=== PATIENT | female | born 1955 | race African-American/Black ===

== ENCOUNTER 2018-03-17 18:13 | Inpatient (IN) | payer MEDICARE, MEDICAID ==
[~2018-03-17] VITALS: Ht 170.2 cm; Wt 112.9 kg
[2018-03-17 22:43] LABS: BASOPHILS % 0.7 % (0.0-2.0); EOSINOPHILS % 0.4 % (0.0-5.0); HEMATOCRIT. 35.2 % (36.0-48.0); HEMOGLOBIN. 11.8 g/dL (12.0-16.0); LYMPHOCYTES % 15.4 % (20.0-50.0); MEAN CORPUSCULAR HEMOGLOBIN 26.1 pg (28.0-32.0); MEAN CORPUSCULAR VOLUME 77.7 fL (81.0-99.0); MEAN PLATELET VOLUME 7.2 fl (7.4-10.4); NEUTROPHILS % 73.5 % (40.0-76.0); PLATELET 425 x1000/uL (130-400); RED BLOOD CELL COUNT 4.53 mill/uL (4.2-5.4); RED CELL DISTRIBUTION WIDTH 15.7 % (11.6-14.6)
[2018-03-17 22:48] LABS: CHLORIDE 98 mEq/L (98-107)
[2018-03-18 03:59] VITALS: BP 120/68
[2018-03-18 04:00] VITALS: BP 120/68
[2018-03-18 08:00] VITALS: BP 107/41
[2018-03-18] MEDS ORDERED: HYDROCODONE/ACETAMINOPHEN 5/325MG TABLET PO PRN (09:15)
[2018-03-18] MEDS: ENOXAPARIN 30MG/0.3ML SYR SUBCUT SCH ×2 (10:50→22:36)
[2018-03-18] MEDS: MORPHINE SULFATE 4 MG/ML CPJ (NOT FOR IM USE) IV PRN ×2 (10:51→15:17)
[2018-03-18 12:00] VITALS: BP 111/55
[2018-03-18 16:00] VITALS: BP 98/49
[2018-03-18] MEDS: SODIUM HYPOCHLORITE 0.125% 473ML SOLUTION TOP SCH (16:00)
[2018-03-18 20:00] VITALS: BP 104/48
[2018-03-18] MEDS: CLINDAMYCIN 600MG PREMIX 50 ML IV SCH (22:31)
[2018-03-19] VITALS: BP 105/52
[2018-03-19 04:00] VITALS: BP 103/56
[2018-03-19] MEDS: CLINDAMYCIN 600MG PREMIX 50 ML IV SCH ×2 (04:20→22:38)
[2018-03-19 08:00] VITALS: BP 104/62
[2018-03-19] MEDS: MORPHINE SULFATE 4 MG/ML CPJ (NOT FOR IM USE) IV PRN (08:29)
[2018-03-19] MEDS: ENOXAPARIN 30MG/0.3ML SYR SUBCUT SCH ×2 (10:14→22:38)
[2018-03-19 12:00] VITALS: BP 105/52
[2018-03-19] MEDS: SODIUM HYPOCHLORITE 0.125% 473ML SOLUTION TOP SCH (13:00)
[2018-03-19 16:00] VITALS: BP 101/57
[2018-03-19 20:00] VITALS: BP 108/55
[2018-03-19] MEDS: LEVOFLOXACIN 750MG PREMIX 150 ML IV SCH (20:43)
[2018-03-20] VITALS (7 sets, daily range): BP systolic 96–116; BP diastolic 48–66
[2018-03-20] MEDS: CLINDAMYCIN 600MG PREMIX 50 ML IV SCH ×3 (04:07→20:09)
[2018-03-20] MEDS: MORPHINE SULFATE 4 MG/ML CPJ (NOT FOR IM USE) IV PRN (04:17)
[2018-03-20 07:19] LABS: HEMATOCRIT 32.2 % (36.0-48.0); HEMOGLOBIN 10.5 g/dL (12.0-16.0); MEAN CORPUSCULAR HEMOGLOBIN 25.3 pg (28.0-32.0); MEAN CORPUSCULAR VOLUME 78.1 fL (81.0-99.0); PLATELET 355 x1000/uL (130-400); RED BLOOD CELL COUNT 4.13 mill/uL (4.2-5.4); RED CELL DISTRIBUTION WIDTH 15.9 % (11.6-14.6)
[2018-03-20 07:25] LABS: CHLORIDE 102 mEq/L (98-107)
[2018-03-20 07:26] LABS: BASOPHILS % 0.5 % (0.0-2.0); EOSINOPHILS % 2.9 % (0.0-5.0); HEMATOCRIT. 31.8 % (36.0-48.0); HEMOGLOBIN. 10.4 g/dL (12.0-16.0); LYMPHOCYTES % 21.6 % (20.0-50.0); MEAN CORPUSCULAR HEMOGLOBIN 25.6 pg (28.0-32.0); MEAN CORPUSCULAR VOLUME 77.8 fL (81.0-99.0); MEAN PLATELET VOLUME 6.9 fl (7.4-10.4); MONOCYTES % 8.6 % (2.0-8.0); NEUTROPHILS % 66.4 % (40.0-76.0); PLATELET 349 x1000/uL (130-400); RED BLOOD CELL COUNT 4.08 mill/uL (4.2-5.4); RED CELL DISTRIBUTION WIDTH 15.9 % (11.6-14.6)
[2018-03-20] MEDS: ENOXAPARIN 30MG/0.3ML SYR SUBCUT SCH ×2 (10:00→21:20)
[2018-03-20] MEDS: SODIUM HYPOCHLORITE 0.125% 473ML SOLUTION TOP SCH (10:01)
[2018-03-20] MEDS: LEVOFLOXACIN 750MG PREMIX 150 ML IV SCH (21:18)
[2018-03-21] VITALS: BP 101/58
[2018-03-21 04:00] VITALS: BP 113/75
[2018-03-21] MEDS: CLINDAMYCIN 600MG PREMIX 50 ML IV SCH ×2 (04:49→12:34)
[2018-03-21] MEDS: ENOXAPARIN 30MG/0.3ML SYR SUBCUT SCH (09:45)
[2018-03-21] MEDS: SODIUM HYPOCHLORITE 0.125% 473ML SOLUTION TOP SCH (09:46)
[2018-03-21 17:04] VITALS: BP 104/65
== END 2018-03-21 17:55 | DRG 602 ==
LOC: ER 19:37 → 6EST 22:35 → OBSVTOIN 22:35 → EDBEDREQTM 22:38 → EDBEDREQ 22:38 → ENRESERV 03-18 01:51
PROVIDERS: ADMIT Internal Medicine; ATTEND Internal Medicine
DX: L03.116 Cellulitis of left lower limb (principal); E43 Unspecified severe protein-calorie malnutrition; E87.1 Hypo-osmolality and hyponatremia; L97.929 Non-pressure chronic ulcer of unspecified part of left lower leg with unspecified severity; L97.919 Non-pressure chronic ulcer of unspecified part of right lower leg with unspecified severity; L03.115 Cellulitis of right lower limb; I87.2 Venous insufficiency (chronic) (peripheral); I87.8 Other specified disorders of veins; D64.9 Anemia, unspecified; R26.2 Difficulty in walking, not elsewhere classified; E66.01 Morbid (severe) obesity due to excess calories; Z83.3 Family history of diabetes mellitus; Z68.39 Body mass index [BMI] 39.0-39.9, adult; Z71.3 Dietary counseling and surveillance
CPT/HCPCS: 36415; 71045; 80048; 80053; 80061; 82962; 83036; 83880; 84443; 85025; 85027; 93306; 93970; 97163; 97166; 97530; 99285; J1650; J1956; J2270; J3490; J7050

== ENCOUNTER 2018-12-13 11:29 | Emergency (ER) | payer MEDICARE, MEDICAID ==
[~2018-12-13] VITALS: Ht 170.2 cm; Wt 118.4 kg
[2018-12-13 13:19] LABS: BASOPHILS % 1.1 % (0.0-2.0); EOSINOPHILS % 3.2 % (0.0-5.0); HEMATOCRIT. 38.9 % (36.0-48.0); HEMOGLOBIN. 12.8 g/dL (12.0-16.0); LYMPHOCYTES % 27.7 % (20.0-50.0); MEAN CORPUSCULAR HEMOGLOBIN 26.4 pg (28.0-32.0); MEAN PLATELET VOLUME 8.5 fl (7.4-10.4); MONOCYTES % 7.2 % (2.0-8.0); NEUTROPHILS % 60.8 % (40.0-76.0); PLATELET 203 x1000/uL (130-400); RED BLOOD CELL COUNT 4.86 mill/uL (4.2-5.4); RED CELL DISTRIBUTION WIDTH 15.7 % (11.6-14.6)
[2018-12-13 13:24] LABS: CHLORIDE 104 mEq/L (98-107)
[2018-12-13 14:55] VITALS: BP 144/74
== END 2018-12-13 17:43 | disposition home or self-care (01) ==
LOC: ER 11:29
DX: R60.0 Localized edema (principal)
CPT/HCPCS: 36415; 71045; 83605; 83880; 84484; 85379; 93005; 93970; 99284

== ENCOUNTER → 2019-03-21 | Outpatient (CLI) | payer MEDICARE, MEDICAID | END | disposition home or self-care (01) | LOC: RAD 12:22 | PROVIDERS: ATTEND Podiatrist Foot & Ankle Surgery | DX: I87.2 Venous insufficiency (chronic) (peripheral) (principal); L97.829 Non-pressure chronic ulcer of other part of left lower leg with unspecified severity; L97.819 Non-pressure chronic ulcer of other part of right lower leg with unspecified severity; I89.0 Lymphedema, not elsewhere classified | CPT/HCPCS: 93970 ==

== ENCOUNTER 2019-10-12 07:18 | Day surgery (SDC) | payer MEDICARE, MEDICAID ==
[~2019-10-12] VITALS: Ht 157.5 cm; Wt 111.1 kg
[2019-10-12 08:33] LABS: UCG SCREEN NEGATIVE
[2019-10-12] MEDS ORDERED: LACTATED RINGERS 1,000 ML IV SCH (10:00)
[2019-10-12] MEDS ORDERED: GABA-529 MT (11:25)
[2019-10-12] MEDS ORDERED: MAGN500C4 PO (11:25)
[2019-10-12] MEDS ORDERED: MULT-1146 MT (11:25)
[2019-10-12] MEDS ORDERED: PANT40SU PO (11:25)
[2019-10-12] MEDS ORDERED: NAPR-679 MT (11:25)
[2019-10-12] MEDS ORDERED: DOCU-150 PO (11:25)
[2019-10-12] MEDS ORDERED: TRAM50TA3 PO (11:25)
[2019-10-12] MEDS ORDERED: SUCCINYLCHOLINE CHLORIDE 200MG/10ML IV ONE ×2 (11:50→11:52)
[2019-10-12] MEDS ORDERED: GLYCOPYRROLATE 0.2 MG/ML 2ML VIAL ONE (11:50)
[2019-10-12] MEDS ORDERED: METOCLOPRAMIDE HCL 10MG/2ML VIAL ONE (11:50)
[2019-10-12] MEDS ORDERED: LIDOCAINE HCL/PF 1% 10 MG/ML 5ML VIAL ONE (11:50)
[2019-10-12] MEDS ORDERED: ONDANSETRON HCL 4MG/2ML INJ ONE (11:50)
[2019-10-12] MEDS ORDERED: MIDAZOLAM HCL 2 MG/2 ML VIAL ONE (11:50)
[2019-10-12] MEDS ORDERED: PROPOFOL 200MG/20ML VIAL IV ONE (11:50)
[2019-10-12] MEDS ORDERED: FENTANYL CITRATE/PF 50MCG/ML 2ML VIAL ONE (11:50)
[2019-10-12] MEDS ORDERED: SODIUM CHLORIDE 0.9% 1,000 ML IV ONE (12:32)
[2019-10-12] MEDS ORDERED: ONDANSETRON HCL 4MG/2ML INJ IV PRN (12:45)
[2019-10-12] MEDS ORDERED: MORPHINE SULFATE 2 MG/ML CPJ (NOT FOR IM USE) IV PRN (12:45)
[2019-10-12] MEDS ORDERED: MEPERIDINE HCL/PF 25MG/ML CPJ IV PRN (12:45)
[2019-10-12] MEDS ORDERED: HYDROMORPHONE HCL/PF 2MG/ML CPJ IV PRN (12:45)
[2019-10-12] MEDS ORDERED: LABETALOL HCL 5MG/ML VIAL 20ML IV ONE (12:48)
== END 2019-10-12 15:30 | disposition home or self-care (01) ==
LOC: OR 07:18
PROVIDERS: ATTEND Obstetrics & Gynecology Obstetrics
DX: N95.0 Postmenopausal bleeding (principal); M17.0 Bilateral primary osteoarthritis of knee; E66.01 Morbid (severe) obesity due to excess calories; K21.9 Gastro-esophageal reflux disease without esophagitis; Z79.899 Other long term (current) drug therapy; Z98.890 Other specified postprocedural states; Z83.3 Family history of diabetes mellitus
CPT/HCPCS: 58558; 81025; 88305; J0330; J2250; J2405; J2704; J2765; J3010; J3490

== ENCOUNTER → 2020-10-04 | Outpatient (CLI) | payer MEDICARE, MEDICAID ==
[~2020-10-04] MED LIST: ACET-2708 PO; DOCU-150 PO; GABA-529 MT; IMIQ1CRE10 TP; LOSA1TAB34 PO; MAGN500C4 PO; MULT-1146 MT; NAPR-679 MT; PANT40SU PO; PREG75CA PO; TRAM50TA3 PO
== END | disposition home or self-care (01) ==
LOC: LAB 09:47
PROVIDERS: ATTEND Obstetrics & Gynecology Gynecologic Oncology
DX: Z01.812 Encounter for preprocedural laboratory examination (principal); Z20.822 Contact with and (suspected) exposure to COVID-19
CPT/HCPCS: 87426

== ENCOUNTER 2020-10-05 05:15 | Inpatient (IN) | payer MEDICARE, MEDICAID ==
[~2020-10-05] VITALS: Ht 157.5 cm; Wt 122.0 kg
[2020-10-05] MEDS ORDERED: LACTATED RINGERS 1,000 ML IV SCH (06:00)
[2020-10-05 06:53] LABS: PARTIAL THROMBOPLASTIN TIME 25.6 sec (23.4-31.0); PROTHROMBIN TIME 11.2 sec (9.6-11.0)
[2020-10-05] MEDS ORDERED: SKIN ADHESIVE 0.7 GM EA TOP ONE (06:55)
[2020-10-05] MEDS ORDERED: BUPIVACAINE HCL/PF 0.25% (2.5MG/ML) 10ML ONE (06:56)
[2020-10-05] MEDS ORDERED: FENTANYL CITRATE/PF 50MCG/ML 2ML VIAL ONE ×2 (07:33→07:44)
[2020-10-05] MEDS ORDERED: ROCURONIUM BROMIDE 10MG/ML VIAL 5ML IV ONE ×2 (07:33→08:25)
[2020-10-05] MEDS ORDERED: PROPOFOL 200MG/20ML VIAL IV ONE (07:34)
[2020-10-05] MEDS ORDERED: SUCCINYLCHOLINE CHLORIDE 200MG/10ML IV ONE (07:34)
[2020-10-05] MEDS ORDERED: CEFAZOLIN SODIUM 1000MG/VIAL ONE (07:34)
[2020-10-05] MEDS ORDERED: NEOSTIGMINE METHYLSULFATE 1MG/ML 10 ML VIAL ONE (07:34)
[2020-10-05] MEDS ORDERED: GLYCOPYRROLATE 0.2 MG/ML 2ML VIAL ONE (07:34)
[2020-10-05] MEDS ORDERED: METOCLOPRAMIDE HCL 10MG/2ML VIAL ONE (07:34)
[2020-10-05] MEDS ORDERED: MIDAZOLAM HCL 2 MG/2 ML VIAL ONE (07:34)
[2020-10-05] MEDS ORDERED: ONDANSETRON HCL 4MG/2ML INJ ONE (07:34)
[2020-10-05] MEDS ORDERED: SODIUM CHLORIDE 0.9% 10ML VIAL ONE (07:34)
[2020-10-05] MEDS ORDERED: LABETALOL HCL 5MG/ML VIAL 20ML IV ONE (09:56)
[2020-10-05] MEDS ORDERED: MEPERIDINE HCL/PF 25MG/ML CPJ IV PRN ×2 (10:15)
[2020-10-05] MEDS ORDERED: SODIUM CHLORIDE 0.9% 1,000 ML IV ONE (10:15)
[2020-10-05] MEDS ORDERED: MORPHINE SULFATE 2 MG/ML CPJ (NOT FOR IM USE) IV PRN (10:15)
[2020-10-05] MEDS ORDERED: TRAMADOL 50MG TABLET PO PRN (10:45)
[2020-10-05] MEDS ORDERED: ONDANSETRON HCL 4MG/2ML INJ IV PRN ×2 (10:45→11:00)
[2020-10-05] MEDS: ONDANSETRON HCL 4MG/2ML INJ IV PRN ×2 (11:06→15:47)
[2020-10-05] MEDS: HYDROMORPHONE HCL/PF 2MG/ML CPJ IV PRN ×2 (11:11→11:20)
[2020-10-05 12:00] VITALS: BP 116/67
[2020-10-05 12:30] VITALS: BP 116/67
[2020-10-05] MEDS ORDERED: ACETAMINOPHEN 500MG TABLET PO SCH (14:00)
[2020-10-05] MEDS: ACETAMINOPHEN 500MG TABLET PO SCH ×2 (15:47→22:06)
[2020-10-05 16:00] VITALS: BP 138/76
[2020-10-05 20:00] VITALS: BP 113/71
[2020-10-05] MEDS: PREGABALIN 75MG CAPSULE PO SCH (22:05)
[2020-10-05] MEDS: SENNOSIDES/DOCUSATE SOD 8.6/50MG TABLET PO SCH (22:05)
[2020-10-06] VITALS: BP 120/51
[2020-10-06 04:00] VITALS: BP 114/49
[2020-10-06] MEDS: ACETAMINOPHEN 500MG TABLET PO SCH ×2 (06:19→15:48)
[2020-10-06 07:29] LABS: BASOPHILS % 0.4 % (0.0-2.0); EOSINOPHILS % 0.6 % (0.0-5.0); HEMATOCRIT. 32.6 % (36.0-48.0); HEMOGLOBIN. 10.7 g/dL (12.0-16.0); LYMPHOCYTES % 24.1 % (20.0-50.0); MEAN CORPUSCULAR HEMOGLOBIN 25.8 pg (28.0-32.0); MEAN CORPUSCULAR VOLUME 78.3 fL (81.0-99.0); MEAN PLATELET VOLUME 8.7 fl (7.4-10.4); MONOCYTES % 7.9 % (2.0-8.0); PLATELET 167 x1000/uL (130-400); RED BLOOD CELL COUNT 4.16 mill/uL (4.2-5.4); RED CELL DISTRIBUTION WIDTH 16.1 % (11.6-14.6)
[2020-10-06 07:33] LABS: CHLORIDE 105 mEq/L (98-107)
[2020-10-06 08:00] VITALS: BP 133/59
[2020-10-06] MEDS: HYDROCHLOROTHIAZIDE 25MG TABLET PO SCH (08:36)
[2020-10-06] MEDS: LOSARTAN POTASSIUM 50 MG TABLET PO SCH (08:36)
[2020-10-06] MEDS: FAMOTIDINE 20MG TABLET PO SCH ×2 (08:36→21:21)
[2020-10-06] MEDS: PREGABALIN 75MG CAPSULE PO SCH ×2 (08:36→21:21)
[2020-10-06 12:00] VITALS: BP 115/51
[2020-10-06 16:00] VITALS: BP 110/53
[2020-10-06] MEDS ORDERED: HYDROCODONE/ACETAMINOPHEN 5/325MG TABLET PO PRN (18:30)
[2020-10-06 20:00] VITALS: BP 105/55
[2020-10-06] MEDS: SENNOSIDES/DOCUSATE SOD 8.6/50MG TABLET PO SCH (21:22)
[2020-10-07] VITALS: BP 104/52
[2020-10-07 04:00] VITALS: BP 107/62
[2020-10-07 08:00] VITALS: BP 122/58
[2020-10-07] MEDS: LOSARTAN POTASSIUM 50 MG TABLET PO SCH (09:50)
[2020-10-07] MEDS: FAMOTIDINE 20MG TABLET PO SCH (09:50)
[2020-10-07] MEDS: HYDROCHLOROTHIAZIDE 25MG TABLET PO SCH (09:50)
[2020-10-07] MEDS: PREGABALIN 75MG CAPSULE PO SCH ×2 (09:50→20:08)
[2020-10-07] MEDS ORDERED: MAGNESIUM HYDROXIDE 400MG/5ML 30ML UDC PO PRN (10:45)
[2020-10-07 12:00] VITALS: BP_SYST 112; BP_DIAS 16; BP_DIAS 61
[2020-10-07 16:00] VITALS: BP 104/60
[2020-10-07] MEDS: MAGNESIUM/ALUMINUM HYDROXIDE/SIMETHICONE 30ML UDC PO PRN (17:35)
[2020-10-07 20:00] VITALS: BP 116/64
[2020-10-07] MEDS: SENNOSIDES/DOCUSATE SOD 8.6/50MG TABLET PO SCH (20:08)
[2020-10-07] MEDS: HYDROCODONE/ACETAMINOPHEN 5/325MG TABLET PO PRN (20:29)
[2020-10-08] VITALS: BP 107/56
[2020-10-08 04:00] VITALS: BP 104/56
[2020-10-08 08:00] VITALS: BP 113/60
[2020-10-08] MEDS: HYDROCHLOROTHIAZIDE 25MG TABLET PO SCH (09:30)
[2020-10-08] MEDS: PREGABALIN 75MG CAPSULE PO SCH ×2 (09:30→20:34)
[2020-10-08] MEDS: LOSARTAN POTASSIUM 50 MG TABLET PO SCH (09:30)
[2020-10-08] MEDS: FAMOTIDINE 20MG TABLET PO SCH (09:30)
[2020-10-08 12:00] VITALS: BP 108/57
[2020-10-08 16:00] VITALS: BP 105/62
[2020-10-08 20:00] VITALS: BP 117/72
[2020-10-08] MEDS: MAGNESIUM/ALUMINUM HYDROXIDE/SIMETHICONE 30ML UDC PO PRN (20:34)
[2020-10-08] MEDS: SENNOSIDES/DOCUSATE SOD 8.6/50MG TABLET PO SCH (20:34)
[2020-10-08] MEDS: HYDROCODONE/ACETAMINOPHEN 5/325MG TABLET PO PRN (20:35)
[2020-10-09] VITALS: BP 118/75
[2020-10-09 04:00] VITALS: BP 107/56
[2020-10-09] MEDS: HYDROCODONE/ACETAMINOPHEN 5/325MG TABLET PO PRN (06:27)
[2020-10-09 08:00] VITALS: BP 116/55
[2020-10-09] MEDS: FAMOTIDINE 20MG TABLET PO SCH (09:06)
[2020-10-09] MEDS: PREGABALIN 75MG CAPSULE PO SCH (09:06)
[2020-10-09] MEDS: HYDROCHLOROTHIAZIDE 25MG TABLET PO SCH (09:06)
[2020-10-09] MEDS: LOSARTAN POTASSIUM 50 MG TABLET PO SCH (09:06)
[2020-10-09] MEDS ORDERED: ASCORBIC ACID 500 MG TABLET PO SCH (11:30)
[2020-10-09] MEDS ORDERED: CYANOCOBALAMIN 1000MCG/ML VIAL IM SCH (11:30)
[2020-10-09 12:00] VITALS: BP 110/69
[2020-10-09] MEDS: FERROUS SULFATE 325MG TABLET PO SCH ×2 (12:39→17:28)
[2020-10-09] MEDS ORDERED: VITAMINS A AND D OINT 5GM UDPKT TOP NR (15:15)
[2020-10-09] MEDS ORDERED: VITAMINS A AND D OINT 5GM UDPKT TOP ONE (15:30)
[2020-10-09 16:00] VITALS: BP 121/65
[2020-10-09] MEDS ORDERED: VITAMINS A AND D OINT TUBE TOP NR (16:30)
[2020-10-09] MEDS ORDERED: DOCUSATE SODIUM 100MG CAPSULE PO SCH (17:00)
[2020-10-09] MEDS: MAGNESIUM/ALUMINUM HYDROXIDE/SIMETHICONE 30ML UDC PO PRN (17:32)
[2020-10-09 17:44] VITALS: BP 124/74
[2020-10-09] MEDS ORDERED: POLYETHYLENE GLYCOL 3350 (17GM) 1 DOSE PACK PO SCH (21:00)
[2020-10-13 14:11] LABS: 25-HYDROXY VITAMIN D3 13 ng/mL (.)
[2020-10-22] MEDS ORDERED: CYANOCOBALAMIN 1000MCG/ML VIAL IM SCH (09:00)
== END 2020-10-09 18:47 | DRG 740 ==
LOC: OR 05:15 → 6EST 05:16
PROVIDERS: ADMIT Obstetrics & Gynecology Gynecologic Oncology; ATTEND Obstetrics & Gynecology Gynecologic Oncology
PROC: 0UT94ZZ Resection of Uterus, Percutaneous Endoscopic Approach (ICD-10-PCS; principal; 2020-10-05)
PROC: 0UT24ZZ Resection of Bilateral Ovaries, Percutaneous Endoscopic Approach (ICD-10-PCS; 2020-10-05)
PROC: 0UT74ZZ Resection of Bilateral Fallopian Tubes, Percutaneous Endoscopic Approach (ICD-10-PCS; 2020-10-05)
PROC: 8E0W4CZ Robotic Assisted Procedure of Trunk Region, Percutaneous Endoscopic Approach (ICD-10-PCS; 2020-10-05)
DX: C54.1 Malignant neoplasm of endometrium (principal); Z68.42 Body mass index [BMI] 45.0-49.9, adult; G82.20 Paraplegia, unspecified; L97.909 Non-pressure chronic ulcer of unspecified part of unspecified lower leg with unspecified severity; D25.9 Leiomyoma of uterus, unspecified; I89.0 Lymphedema, not elsewhere classified; G62.9 Polyneuropathy, unspecified; E66.01 Morbid (severe) obesity due to excess calories; I10 Essential (primary) hypertension; E53.8 Deficiency of other specified B group vitamins; E61.1 Iron deficiency; Z20.822 Contact with and (suspected) exposure to COVID-19; K66.0 Peritoneal adhesions (postprocedural) (postinfection); D64.9 Anemia, unspecified; Z85.42 Personal history of malignant neoplasm of other parts of uterus
CPT/HCPCS: 36415; 80051; 80053; 82306; 82607; 82728; 82746; 83036; 83540; 83550; 84443; 85025; 86850; 86900; 87426; 88108; 88302; 97162; 97166; 97530; 97535; C1725; C1893; J0330; J0690; J1170; J2250; J2405; J2704; J2710; J2765; J3010; J3420; J3490

== ENCOUNTER 2020-10-09 18:50 | Inpatient (IN) | payer MEDICARE, MEDICAID ==
[~2020-10-09] VITALS: Ht 157.5 cm; Wt 122.0 kg
[~2020-10-09 18:50] MED LIST changes: -DOCU-150 PO; -GABA-529 MT
[2020-10-09 20:00] VITALS: BP 94/42
[2020-10-09] MEDS ORDERED: HYDROCODONE/ACETAMINOPHEN 5/325MG TABLET PO PRN ×2 (20:15→21:00)
[2020-10-09] MEDS ORDERED: MAGNESIUM HYDROXIDE 400MG/5ML 30ML UDC PO PRN (20:15)
[2020-10-09] MEDS ORDERED: ONDANSETRON HCL 4MG/2ML INJ IV PRN (20:15)
[2020-10-09] MEDS ORDERED: SENNOSIDES/DOCUSATE SOD 8.6/50MG TABLET PO PRN (20:15)
[2020-10-09] MEDS: POLYETHYLENE GLYCOL 3350 (17GM) 1 DOSE PACK PO SCH (22:52)
[2020-10-09] MEDS: PREGABALIN 75MG CAPSULE PO SCH (22:52)
[2020-10-10 08:16] LABS: BASOPHILS % 0.8 % (0.0-2.0); EOSINOPHILS % 1.3 % (0.0-5.0); HEMOGLOBIN. 11.8 g/dL (12.0-16.0); LYMPHOCYTES % 25.8 % (20.0-50.0); MEAN CORPUSCULAR HEMOGLOBIN 25.5 pg (28.0-32.0); MEAN CORPUSCULAR VOLUME 77.8 fL (81.0-99.0); MEAN PLATELET VOLUME 8.7 fl (7.4-10.4); MONOCYTES % 12.6 % (2.0-8.0); NEUTROPHILS % 59.5 % (40.0-76.0); PLATELET 203 x1000/uL (130-400); RED BLOOD CELL COUNT 4.62 mill/uL (4.2-5.4); RED CELL DISTRIBUTION WIDTH 16.3 % (11.6-14.6)
[2020-10-10 08:17] LABS: CHLORIDE 101 mEq/L (98-107)
[2020-10-10 08:25] VITALS: BP 100/58
[2020-10-10] MEDS: MAGNESIUM/ALUMINUM HYDROXIDE/SIMETHICONE 30ML UDC PO PRN (09:15)
[2020-10-10] MEDS: CYANOCOBALAMIN 1000MCG/ML VIAL IM SCH (09:15)
[2020-10-10] MEDS: DOCUSATE SODIUM 100MG CAPSULE PO SCH ×2 (09:17→16:28)
[2020-10-10] MEDS: HYDROCHLOROTHIAZIDE 25MG TABLET PO SCH (09:17)
[2020-10-10] MEDS: PREGABALIN 75MG CAPSULE PO SCH ×2 (09:17→21:20)
[2020-10-10] MEDS: HYDROCODONE/ACETAMINOPHEN 5/325MG TABLET PO PRN (09:17)
[2020-10-10] MEDS: FERROUS SULFATE 325MG TABLET PO SCH ×3 (09:18→16:28)
[2020-10-10] MEDS: FAMOTIDINE 20MG TABLET PO SCH (09:18)
[2020-10-10] MEDS: LOSARTAN POTASSIUM 50 MG TABLET PO SCH (09:18)
[2020-10-10] MEDS: ASCORBIC ACID 500 MG TABLET PO SCH (09:18)
[2020-10-10 20:00] VITALS: BP 97/41
[2020-10-10] MEDS: ENOXAPARIN 40MG/0.4ML SYR SUBCUT SCH (21:21)
[2020-10-10] MEDS: POLYETHYLENE GLYCOL 3350 (17GM) 1 DOSE PACK PO SCH (21:21)
[2020-10-11 08:00] VITALS: BP 119/62
[2020-10-11] MEDS: CYANOCOBALAMIN 1000MCG/ML VIAL IM SCH (09:40)
[2020-10-11] MEDS: PREGABALIN 75MG CAPSULE PO SCH ×2 (09:40→21:50)
[2020-10-11] MEDS: DOCUSATE SODIUM 100MG CAPSULE PO SCH ×2 (09:40→16:38)
[2020-10-11] MEDS: FERROUS SULFATE 325MG TABLET PO SCH ×3 (09:40→16:38)
[2020-10-11] MEDS: HYDROCHLOROTHIAZIDE 25MG TABLET PO SCH (09:40)
[2020-10-11] MEDS: LOSARTAN POTASSIUM 50 MG TABLET PO SCH (09:41)
[2020-10-11] MEDS: FAMOTIDINE 20MG TABLET PO SCH (09:41)
[2020-10-11] MEDS: ENOXAPARIN 40MG/0.4ML SYR SUBCUT SCH (09:42)
[2020-10-11] MEDS: ASCORBIC ACID 500 MG TABLET PO SCH (09:46)
[2020-10-11] MEDS: HYDROCODONE/ACETAMINOPHEN 5/325MG TABLET PO PRN (16:43)
[2020-10-11 20:00] VITALS: BP 95/40
[2020-10-11] MEDS: LACTULOSE 20G/30ML UDC PO SCH (21:51)
[2020-10-11] MEDS: POLYETHYLENE GLYCOL 3350 (17GM) 1 DOSE PACK PO SCH (21:51)
[2020-10-11] MEDS: ENOXAPARIN 30MG/0.3ML SYR SUBCUT SCH (21:51)
[2020-10-12] MEDS: LOSARTAN POTASSIUM 50 MG TABLET PO SCH (09:00)
[2020-10-12] MEDS: PREGABALIN 75MG CAPSULE PO SCH ×2 (09:08→20:34)
[2020-10-12] MEDS: FERROUS SULFATE 325MG TABLET PO SCH ×3 (09:08→16:50)
[2020-10-12] MEDS: FAMOTIDINE 20MG TABLET PO SCH (09:08)
[2020-10-12] MEDS: DOCUSATE SODIUM 100MG CAPSULE PO SCH ×2 (09:09→16:50)
[2020-10-12] MEDS: HYDROCHLOROTHIAZIDE 25MG TABLET PO SCH (09:09)
[2020-10-12] MEDS: ASCORBIC ACID 500 MG TABLET PO SCH (09:09)
[2020-10-12] MEDS: CYANOCOBALAMIN 1000MCG/ML VIAL IM SCH (09:10)
[2020-10-12] MEDS: ENOXAPARIN 30MG/0.3ML SYR SUBCUT SCH ×2 (09:10→20:34)
[2020-10-12 09:54] VITALS: BP 111/65
[2020-10-12] MEDS: MAGNESIUM/ALUMINUM HYDROXIDE/SIMETHICONE 30ML UDC PO PRN (11:54)
[2020-10-12 20:00] VITALS: BP 102/53
[2020-10-12] MEDS: LACTULOSE 20G/30ML UDC PO SCH ×2 (20:33→20:37)
[2020-10-12] MEDS: POLYETHYLENE GLYCOL 3350 (17GM) 1 DOSE PACK PO SCH (20:33)
[2020-10-13 08:00] VITALS: BP 110/55
[2020-10-13] MEDS: FAMOTIDINE 20MG TABLET PO SCH (08:34)
[2020-10-13] MEDS: ASCORBIC ACID 500 MG TABLET PO SCH (08:34)
[2020-10-13] MEDS: ENOXAPARIN 30MG/0.3ML SYR SUBCUT SCH ×2 (08:34→20:57)
[2020-10-13] MEDS: HYDROCODONE/ACETAMINOPHEN 5/325MG TABLET PO PRN (08:35)
[2020-10-13] MEDS: PREGABALIN 75MG CAPSULE PO SCH ×2 (08:37→20:57)
[2020-10-13] MEDS: FERROUS SULFATE 325MG TABLET PO SCH ×3 (08:37→16:31)
[2020-10-13] MEDS: CYANOCOBALAMIN 1000MCG/ML VIAL IM SCH (08:37)
[2020-10-13] MEDS: LOSARTAN POTASSIUM 50 MG TABLET PO SCH (08:37)
[2020-10-13] MEDS: HYDROCHLOROTHIAZIDE 25MG TABLET PO SCH (08:37)
[2020-10-13] MEDS: DOCUSATE SODIUM 100MG CAPSULE PO SCH ×2 (09:00→16:31)
[2020-10-13] MEDS: ACETAMINOPHEN 325MG TABLET PO PRN (12:58)
[2020-10-13] MEDS: MAGNESIUM/ALUMINUM HYDROXIDE/SIMETHICONE 30ML UDC PO PRN (13:36)
[2020-10-13 20:00] VITALS: BP 94/47
[2020-10-13] MEDS: LACTULOSE 20G/30ML UDC PO SCH (20:57)
[2020-10-13] MEDS: POLYETHYLENE GLYCOL 3350 (17GM) 1 DOSE PACK PO SCH (20:57)
[2020-10-14 08:00] VITALS: BP 101/55
[2020-10-14] MEDS: FERROUS SULFATE 325MG TABLET PO SCH ×3 (08:29→16:55)
[2020-10-14] MEDS: DOCUSATE SODIUM 100MG CAPSULE PO SCH ×2 (08:29→16:56)
[2020-10-14] MEDS: ENOXAPARIN 30MG/0.3ML SYR SUBCUT SCH ×2 (08:29→21:56)
[2020-10-14] MEDS: HYDROCHLOROTHIAZIDE 25MG TABLET PO SCH (08:30)
[2020-10-14] MEDS: LOSARTAN POTASSIUM 50 MG TABLET PO SCH ×2 (08:30→08:31)
[2020-10-14] MEDS: FAMOTIDINE 20MG TABLET PO SCH (08:30)
[2020-10-14] MEDS: CYANOCOBALAMIN 1000MCG/ML VIAL IM SCH (08:30)
[2020-10-14] MEDS: PREGABALIN 75MG CAPSULE PO SCH ×2 (08:30→21:56)
[2020-10-14] MEDS: ASCORBIC ACID 500 MG TABLET PO SCH (08:30)
[2020-10-14] MEDS ORDERED: LOPERAMIDE HCL 2MG CAPSULE PO PRN (12:45)
[2020-10-14 20:00] VITALS: BP 103/59
[2020-10-14] MEDS: POLYETHYLENE GLYCOL 3350 (17GM) 1 DOSE PACK PO SCH (21:00)
[2020-10-14] MEDS: LACTULOSE 20G/30ML UDC PO SCH (21:00)
[2020-10-15 08:10] VITALS: BP 110/49
[2020-10-15] MEDS: ENOXAPARIN 30MG/0.3ML SYR SUBCUT SCH ×2 (08:19→21:48)
[2020-10-15] MEDS: CYANOCOBALAMIN 1000MCG/ML VIAL IM SCH (08:19)
[2020-10-15] MEDS: FAMOTIDINE 20MG TABLET PO SCH (08:20)
[2020-10-15] MEDS: PREGABALIN 75MG CAPSULE PO SCH ×2 (08:20→21:47)
[2020-10-15] MEDS: ACETAMINOPHEN 325MG TABLET PO PRN (08:20)
[2020-10-15] MEDS: LOSARTAN POTASSIUM 50 MG TABLET PO SCH (08:20)
[2020-10-15] MEDS: HYDROCHLOROTHIAZIDE 25MG TABLET PO SCH (08:20)
[2020-10-15] MEDS: FERROUS SULFATE 325MG TABLET PO SCH ×3 (08:20→16:07)
[2020-10-15] MEDS: ASCORBIC ACID 500 MG TABLET PO SCH (08:20)
[2020-10-15] MEDS: DOCUSATE SODIUM 100MG CAPSULE PO SCH ×2 (08:27→16:09)
[2020-10-15 08:37] LABS: BASOPHILS % 0.7 % (0.0-2.0); EOSINOPHILS % 0.8 % (0.0-5.0); HEMATOCRIT. 39.3 % (36.0-48.0); HEMOGLOBIN. 12.8 g/dL (12.0-16.0); LYMPHOCYTES % 20.6 % (20.0-50.0); MEAN CORPUSCULAR HEMOGLOBIN 25.4 pg (28.0-32.0); MEAN CORPUSCULAR VOLUME 77.6 fL (81.0-99.0); MEAN PLATELET VOLUME 8.4 fl (7.4-10.4); MONOCYTES % 9.2 % (2.0-8.0); NEUTROPHILS % 68.7 % (40.0-76.0); PLATELET 249 x1000/uL (130-400); RED BLOOD CELL COUNT 5.06 mill/uL (4.2-5.4); RED CELL DISTRIBUTION WIDTH 16.3 % (11.6-14.6)
[2020-10-15 09:15] LABS: CHLORIDE 98 mEq/L (98-107)
[2020-10-15] MEDS ORDERED: ONDANSETRON HCL 4MG TABLET PO PRN (12:15)
[2020-10-15] MEDS ORDERED: OXYCODONE HCL 5MG TABLET PO PRN (12:30)
[2020-10-15 13:29] VITALS: BP 119/71
[2020-10-15 20:00] VITALS: BP 93/50
[2020-10-15] MEDS: POLYETHYLENE GLYCOL 3350 (17GM) 1 DOSE PACK PO SCH (21:00)
[2020-10-15] MEDS: LACTULOSE 20G/30ML UDC PO SCH (21:47)
[2020-10-15] MEDS: MAGNESIUM/ALUMINUM HYDROXIDE/SIMETHICONE 30ML UDC PO PRN (21:49)
[2020-10-16] MEDS: ACETAMINOPHEN 325MG TABLET PO PRN ×2 (07:04→12:48)
[2020-10-16 08:00] VITALS: BP 100/54
[2020-10-16] MEDS: ASCORBIC ACID 500 MG TABLET PO SCH (10:25)
[2020-10-16] MEDS: DOCUSATE SODIUM 100MG CAPSULE PO SCH ×2 (10:25→17:50)
[2020-10-16] MEDS: FERROUS SULFATE 325MG TABLET PO SCH ×3 (10:25→17:50)
[2020-10-16] MEDS: HYDROCHLOROTHIAZIDE 25MG TABLET PO SCH (10:25)
[2020-10-16] MEDS: FAMOTIDINE 20MG TABLET PO SCH (10:25)
[2020-10-16] MEDS: LOSARTAN POTASSIUM 50 MG TABLET PO SCH (10:25)
[2020-10-16] MEDS: PREGABALIN 75MG CAPSULE PO SCH ×2 (10:25→22:08)
[2020-10-16] MEDS: CYANOCOBALAMIN 1000MCG/ML VIAL IM SCH (10:26)
[2020-10-16] MEDS: ENOXAPARIN 30MG/0.3ML SYR SUBCUT SCH ×2 (10:26→22:08)
[2020-10-16 20:00] VITALS: BP 78/36
[2020-10-16] MEDS: LACTULOSE 20G/30ML UDC PO SCH (21:00)
[2020-10-16] MEDS: POLYETHYLENE GLYCOL 3350 (17GM) 1 DOSE PACK PO SCH (21:00)
[2020-10-17 08:00] VITALS: BP 96/49
[2020-10-17] MEDS: ASCORBIC ACID 500 MG TABLET PO SCH (08:44)
[2020-10-17] MEDS: FERROUS SULFATE 325MG TABLET PO SCH ×3 (08:50→17:57)
[2020-10-17] MEDS: FAMOTIDINE 20MG TABLET PO SCH (08:50)
[2020-10-17] MEDS: DOCUSATE SODIUM 100MG CAPSULE PO SCH ×2 (08:51→17:57)
[2020-10-17] MEDS: LOSARTAN POTASSIUM 50 MG TABLET PO SCH (08:52)
[2020-10-17] MEDS: HYDROCHLOROTHIAZIDE 25MG TABLET PO SCH (08:52)
[2020-10-17] MEDS: ACETAMINOPHEN 325MG TABLET PO PRN ×3 (09:01→20:41)
[2020-10-17] MEDS: PREGABALIN 75MG CAPSULE PO SCH ×2 (09:01→20:55)
[2020-10-17] MEDS: ENOXAPARIN 30MG/0.3ML SYR SUBCUT SCH ×2 (09:01→20:55)
[2020-10-17 20:00] VITALS: BP 98/52
[2020-10-17] MEDS: POLYETHYLENE GLYCOL 3350 (17GM) 1 DOSE PACK PO SCH (20:54)
[2020-10-17] MEDS: MAGNESIUM/ALUMINUM HYDROXIDE/SIMETHICONE 30ML UDC PO PRN (20:55)
[2020-10-17] MEDS: LACTULOSE 20G/30ML UDC PO SCH (20:55)
[2020-10-17 21:43] LABS: CLARITY URINE CLEAR (CLEAR); COLOR URINE YELLOW (YELLOW); KETONES URINE NEGATIVE (NEGATIVE); LEUKOCYTE ESTERASE URINE 1+ (NEGATIVE); NITRITE URINE NEGATIVE (NEGATIVE); OCCULT BLOOD URINE 2+ (NEGATIVE); PH URINE 5.5 (4.5-8.0); PROTEIN URINE 1+ (NEGATIVE); SPECIFIC GRAVITY URINE 1.017 (1.005-1.030); UROBILINOGEN URINE 0.2 E.U./dL (0.2-1.0)
[2020-10-18 01:00] VITALS: BP 96/57
[2020-10-18 07:52] LABS: BASOPHILS % 0.5 % (0.0-2.0); EOSINOPHILS % 1.3 % (0.0-5.0); HEMATOCRIT. 35.8 % (36.0-48.0); HEMOGLOBIN. 11.7 g/dL (12.0-16.0); MEAN CORPUSCULAR HEMOGLOBIN 25.4 pg (28.0-32.0); MEAN PLATELET VOLUME 8.6 fl (7.4-10.4); MONOCYTES % 9.8 % (2.0-8.0); NEUTROPHILS % 69.4 % (40.0-76.0); PLATELET 232 x1000/uL (130-400); RED BLOOD CELL COUNT 4.59 mill/uL (4.2-5.4)
[2020-10-18 08:16] LABS: CHLORIDE 99 mEq/L (98-107)
[2020-10-18 08:18] VITALS: BP 119/50
[2020-10-18] MEDS: DOCUSATE SODIUM 100MG CAPSULE PO SCH ×2 (09:00→17:03)
[2020-10-18] MEDS: FAMOTIDINE 20MG TABLET PO SCH (09:01)
[2020-10-18] MEDS: ASCORBIC ACID 500 MG TABLET PO SCH (09:01)
[2020-10-18] MEDS: FERROUS SULFATE 325MG TABLET PO SCH ×3 (09:02→17:03)
[2020-10-18] MEDS: LOSARTAN POTASSIUM 50 MG TABLET PO SCH (09:02)
[2020-10-18] MEDS: HYDROCHLOROTHIAZIDE 25MG TABLET PO SCH (09:10)
[2020-10-18] MEDS: PREGABALIN 75MG CAPSULE PO SCH ×2 (09:19→20:06)
[2020-10-18] MEDS: ENOXAPARIN 30MG/0.3ML SYR SUBCUT SCH ×2 (09:20→20:07)
[2020-10-18] MEDS: ACETAMINOPHEN 325MG TABLET PO PRN (09:20)
[2020-10-18 20:00] VITALS: BP 91/38
[2020-10-18] MEDS: LACTULOSE 20G/30ML UDC PO SCH (20:07)
[2020-10-18] MEDS: POLYETHYLENE GLYCOL 3350 (17GM) 1 DOSE PACK PO SCH (20:07)
[2020-10-19 08:00] VITALS: BP 93/52
[2020-10-19] MEDS: DOCUSATE SODIUM 100MG CAPSULE PO SCH (08:46)
[2020-10-19] MEDS: PREGABALIN 75MG CAPSULE PO SCH (08:46)
[2020-10-19] MEDS: FAMOTIDINE 20MG TABLET PO SCH (08:46)
[2020-10-19] MEDS: FERROUS SULFATE 325MG TABLET PO SCH ×2 (08:46→12:40)
[2020-10-19] MEDS: HYDROCHLOROTHIAZIDE 25MG TABLET PO SCH (08:46)
[2020-10-19] MEDS: ASCORBIC ACID 500 MG TABLET PO SCH (08:46)
[2020-10-19] MEDS: LOSARTAN POTASSIUM 50 MG TABLET PO SCH (08:49)
[2020-10-19] MEDS: ACETAMINOPHEN 325MG TABLET PO PRN (08:57)
[2020-10-19] MEDS: ENOXAPARIN 30MG/0.3ML SYR SUBCUT SCH (09:00)
[2020-10-19 11:10] VITALS: BP 93/52
[2020-10-19] MEDS ORDERED: ASCO-339 PO (14:01)
[2020-10-19] MEDS ORDERED: DOCU-138 PO (14:01)
[2020-10-19] MEDS ORDERED: ASCO-339 MT (14:01)
[2020-10-19] MEDS ORDERED: FERR325T6 MT (14:01)
[2020-10-20 17:06] LABS: 25-HYDROXY VITAMIN D3 14 ng/mL (.)
[2020-10-23] MEDS ORDERED: CYANOCOBALAMIN 1000MCG/ML VIAL IM SCH (09:00)
== END 2020-10-19 15:30 | disposition home health service (06) | DRG 73 ==
PROVIDERS: ADMIT Physical Medicine & Rehabilitation Spinal Cord Injury Medicine; ATTEND Hospitalist
DX: G62.9 Polyneuropathy, unspecified (principal); E43 Unspecified severe protein-calorie malnutrition; G82.20 Paraplegia, unspecified; L97.929 Non-pressure chronic ulcer of unspecified part of left lower leg with unspecified severity; N39.0 Urinary tract infection, site not specified; L97.919 Non-pressure chronic ulcer of unspecified part of right lower leg with unspecified severity; Z68.42 Body mass index [BMI] 45.0-49.9, adult; C54.1 Malignant neoplasm of endometrium; D25.9 Leiomyoma of uterus, unspecified; B07.9 Viral wart, unspecified; E66.01 Morbid (severe) obesity due to excess calories; D63.8 Anemia in other chronic diseases classified elsewhere; E53.8 Deficiency of other specified B group vitamins; I10 Essential (primary) hypertension; I87.2 Venous insufficiency (chronic) (peripheral); I89.0 Lymphedema, not elsewhere classified; D50.9 Iron deficiency anemia, unspecified; R53.81 Other malaise; R26.9 Unspecified abnormalities of gait and mobility; Z90.710 Acquired absence of both cervix and uterus; R20.0 Anesthesia of skin; Z79.899 Other long term (current) drug therapy
CPT/HCPCS: 36415; 71045; 80048; 80053; 81003; 82306; 83880; 84134; 85025; 92610; 93970; 97110; 97116; 97162; 97166; 97530; 97535; J1650; J2405; J3420; Q0162

== ENCOUNTER 2021-03-24 13:10 | Emergency (ER) | payer MEDICARE, MEDICAID ==
[~2021-03-24 13:10] MED LIST changes: -ACET-2708 PO; +ASCO-339 MT; +DOCU-138 PO; +FERR325T6 MT; -IMIQ1CRE10 TP; -LOSA1TAB34 PO; -MAGN500C4 PO; -MULT-1146 MT; -PANT40SU PO
== END 2021-03-24 14:33 | disposition left against medical advice (07) ==
LOC: ER 13:10
DX: R10.9 Unspecified abdominal pain (principal); Z53.21 Procedure and treatment not carried out due to patient leaving prior to being seen by health care provider

== ENCOUNTER 2021-03-24 14:50 | Emergency (ER) | payer MEDICARE, MEDICAID ==
[~2021-03-24] VITALS: Ht 165.1 cm; Wt 5.0 kg
[2021-03-24 14:55] VITALS: BP 146/65
== END 2021-03-24 17:32 | disposition home or self-care (01) ==
LOC: ER 14:50
DX: K42.9 Umbilical hernia without obstruction or gangrene (principal); I10 Essential (primary) hypertension; Z90.710 Acquired absence of both cervix and uterus; Z79.899 Other long term (current) drug therapy
CPT/HCPCS: 99281

== ENCOUNTER → 2021-06-26 | Day surgery (SDC) | payer MEDICARE, MEDICAID ==
[2021-06-26] VITALS (12 sets, daily range): BP systolic 99–131; BP diastolic 41–83
[~2021-06-26] VITALS: Ht 157.5 cm; Wt 105.2 kg
[~2021-06-26] MED LIST changes: +ARTHRITIS PAIN; +BUME0.5T5 PO; +DOCU-150 MT; +FENTANYL CITRATE/PF 50MCG/ML 2ML VIAL IV ONE; +FENTANYL CITRATE/PF 50MCG/ML 2ML VIAL ONE; +FEROSUL; +GABA-529 MT; +HYDROCODONE/ACETAMINOPHEN 5/325MG TABLET PO PRN; +IMIQ1CRE TP; +LIDOCAINE HCL 1% 20ML VIAL (Pyxis) INJ ONE; +LOSA1TAB34 MT; +METO-396 MT; +MULT-13 MT; +NALOXONE HCL 0.4MG/ML VIAL IV PRN; +NAPR-681 MT; +OMEP20CA14 PO; +PAIN RELIEF PO; +SODIUM BICARBONATE 4% (2.4MEQ) 5ML VIAL IV ONE; +TRAM50TA3 MT
== END | disposition home or self-care (01) ==
LOC: RAD 07:56
PROVIDERS: ATTEND Obstetrics & Gynecology Gynecologic Oncology
DX: C78.6 Secondary malignant neoplasm of retroperitoneum and peritoneum (principal); C54.1 Malignant neoplasm of endometrium; K92.1 Melena; D25.1 Intramural leiomyoma of uterus; R19.09 Other intra-abdominal and pelvic swelling, mass and lump; Z79.899 Other long term (current) drug therapy; Z98.890 Other specified postprocedural states; Z83.3 Family history of diabetes mellitus; Z20.822 Contact with and (suspected) exposure to COVID-19
CPT/HCPCS: 49180; 77012; 87426; 88305; 88331; 99152; 99153; J3010; J3490; G0500

== ENCOUNTER 2021-07-02 17:45 | Inpatient (IN) | payer MEDICARE, MEDICAID ==
[~2021-07-02] VITALS: Ht 157.5 cm; Wt 108.0 kg
[~2021-07-02 17:45] MED LIST changes: -ARTHRITIS PAIN; -BUME0.5T5 PO; -DOCU-150 MT; -FENTANYL CITRATE/PF 50MCG/ML 2ML VIAL IV ONE; -FENTANYL CITRATE/PF 50MCG/ML 2ML VIAL ONE; -FEROSUL; -GABA-529 MT; -HYDROCODONE/ACETAMINOPHEN 5/325MG TABLET PO PRN; -IMIQ1CRE TP; -LIDOCAINE HCL 1% 20ML VIAL (Pyxis) INJ ONE; -LOSA1TAB34 MT; -METO-396 MT; -MULT-13 MT; -NALOXONE HCL 0.4MG/ML VIAL IV PRN; -NAPR-681 MT; -OMEP20CA14 PO; -PAIN RELIEF PO; -SODIUM BICARBONATE 4% (2.4MEQ) 5ML VIAL IV ONE; -TRAM50TA3 MT
[2021-07-02] MEDS ORDERED: MORPHINE SULFATE 4 MG/ML CPJ (NOT FOR IM USE) IV STA (17:59)
[2021-07-02] MEDS ORDERED: ONDANSETRON HCL 4MG/2ML INJ IV STA (17:59)
[2021-07-02] MEDS ORDERED: PIPERACILLIN/TAZ 3.375G PREMIX 50 ML IV ONE (18:15)
[2021-07-02] MEDS ORDERED: VANCOMYCIN 1 G PREMIX 200 ML IV ONE (18:15)
[2021-07-02 18:57] LABS: BASOPHILS % 0.9 % (0.0-2.0); EOSINOPHILS % 3.3 % (0.0-5.0); HEMATOCRIT. 32.1 % (36.0-48.0); HEMOGLOBIN. 10.4 g/dL (12.0-16.0); LYMPHOCYTES % 18.3 % (20.0-50.0); MEAN CORPUSCULAR HEMOGLOBIN 26.9 pg (28.0-32.0); MEAN CORPUSCULAR VOLUME 83.1 fL (81.0-99.0); MONOCYTES % 7.2 % (2.0-8.0); NEUTROPHILS % 70.3 % (40.0-76.0); PLATELET 339 x1000/uL (130-400); RED BLOOD CELL COUNT 3.87 mill/uL (4.2-5.4); RED CELL DISTRIBUTION WIDTH 14.8 % (11.6-14.6)
[2021-07-02 19:01] LABS: CHLORIDE 109 mEq/L (98-107)
[2021-07-03] MEDS ORDERED: MORPHINE SULFATE 4 MG/ML CPJ (NOT FOR IM USE) IV SCH (01:30)
[2021-07-03] MEDS ORDERED: PIPERACILLIN/TAZ 3.375G PREMIX 50 ML IV SCH (01:30)
[2021-07-03] MEDS ORDERED: VANCOMYCIN 1 G PREMIX 200 ML IV SCH (01:30)
[2021-07-03] MEDS ORDERED: ONDANSETRON HCL 4MG/2ML INJ IV SCH (01:30)
[2021-07-03 08:00] VITALS: BP 104/49
[2021-07-03 10:10] VITALS: BP 104/49
[2021-07-03] MEDS ORDERED: METO-396 MT (10:35)
[2021-07-03] MEDS ORDERED: TRAM50TA3 MT ×2 (10:35)
[2021-07-03] MEDS ORDERED: DOCU-150 MT (10:35)
[2021-07-03] MEDS ORDERED: PAIN RELIEF PO (10:35)
[2021-07-03] MEDS ORDERED: ARTHRITIS PAIN (10:35)
[2021-07-03] MEDS ORDERED: FEROSUL (10:35)
[2021-07-03] MEDS ORDERED: OMEP20CA14 PO (10:35)
[2021-07-03] MEDS ORDERED: ASCO-339 MT (10:35)
[2021-07-03] MEDS ORDERED: GABA-529 MT (10:35)
[2021-07-03] MEDS ORDERED: IMIQ1CRE TP (10:35)
[2021-07-03] MEDS ORDERED: LOSA1TAB34 MT (10:35)
[2021-07-03] MEDS ORDERED: MULT-13 MT (10:35)
[2021-07-03] MEDS ORDERED: BUME0.5T5 PO (10:35)
[2021-07-03] MEDS ORDERED: NAPR-681 MT (10:35)
[2021-07-03] MEDS ORDERED: CLONIDINE 0.1MG TABLET PO PRN (11:00)
[2021-07-03] MEDS ORDERED: DIPHENHYDRAMINE 50MG/ML VIAL IV PRN (11:00)
[2021-07-03] MEDS ORDERED: *PATIENT'S OWN MEDICATION STORAGE XX SCH (11:00)
[2021-07-03] MEDS ORDERED: IPRATROPIUM/ALBUTEROL 0.5-3(2.5)MG/3ML NEB HHN PRN (11:00)
[2021-07-03] MEDS ORDERED: NALOXONE HCL 0.4MG/ML VIAL IV PRN (11:15)
[2021-07-03 12:00] VITALS: BP 117/48
[2021-07-03] MEDS ORDERED: VANCOMYCIN 1 G PREMIX 200 ML IV NR (12:00)
[2021-07-03] MEDS ORDERED: PIPERACILLIN/TAZOBACTAM 3.375 G in DEXTROSE 5% WATER 50 ML IV SCH (12:00)
[2021-07-03] MEDS: MORPHINE SULFATE 2 MG/ML CPJ (NOT FOR IM USE) IV PRN ×2 (15:58→22:15)
[2021-07-03 16:00] VITALS: BP 114/57
[2021-07-03 20:00] VITALS: BP 107/71
[2021-07-03] MEDS: PIPERACILLIN/TAZOBACTAM 3.375 G in DEXTROSE 5% WATER 50 ML IV SCH (22:14)
[2021-07-04] VITALS: BP 116/56
[2021-07-04 04:00] VITALS: BP 122/53
[2021-07-04] MEDS: PIPERACILLIN/TAZOBACTAM 3.375 G in DEXTROSE 5% WATER 50 ML IV SCH ×3 (06:47→22:05)
[2021-07-04 07:07] LABS: EOSINOPHILS % 4.7 % (0.0-5.0); HEMATOCRIT. 27.4 % (36.0-48.0); HEMOGLOBIN. 9.2 g/dL (12.0-16.0); LYMPHOCYTES % 23.1 % (20.0-50.0); MEAN CORPUSCULAR HEMOGLOBIN 27.6 pg (28.0-32.0); MEAN PLATELET VOLUME 8.1 fl (7.4-10.4); MONOCYTES % 10.2 % (2.0-8.0); PLATELET 281 x1000/uL (130-400); RED BLOOD CELL COUNT 3.34 mill/uL (4.2-5.4); RED CELL DISTRIBUTION WIDTH 14.9 % (11.6-14.6)
[2021-07-04 07:11] LABS: CHLORIDE 108 mEq/L (98-107)
[2021-07-04 07:22] LABS: LDL CHOLESTEROL 65 mg/dL (5-100)
[2021-07-04 07:27] LABS: HDL CHOLESTEROL 47 mg/dL (40-59)
[2021-07-04 08:00] VITALS: BP 109/58
[2021-07-04] MEDS: ACETAMINOPHEN 325MG TABLET PO PRN ×2 (09:23→22:16)
[2021-07-04 12:00] VITALS: BP 100/93
[2021-07-04] MEDS ORDERED: VANCOMYCIN 750 MG PREMIX 150 ML IV SCH (12:00)
[2021-07-04] MEDS: MORPHINE SULFATE 2 MG/ML CPJ (NOT FOR IM USE) IV PRN ×2 (13:11→17:56)
[2021-07-04 16:00] VITALS: BP 120/68
[2021-07-04] MEDS: VANCOMYCIN 1 G PREMIX 200 ML IV SCH (17:55)
[2021-07-04 20:00] VITALS: BP 108/57
[2021-07-05] VITALS: BP 115/53
[2021-07-05] MEDS ORDERED: VANCOMYCIN 1250MG in DEXTROSE 5% WATER 250ML IV SCH
[2021-07-05 04:00] VITALS: BP 105/64
[2021-07-05] MEDS: PIPERACILLIN/TAZOBACTAM 3.375 G in DEXTROSE 5% WATER 50 ML IV SCH ×3 (05:51→22:21)
[2021-07-05 06:17] LABS: CHLORIDE 108 mEq/L (98-107)
[2021-07-05 08:00] VITALS: BP 116/50
[2021-07-05] MEDS: MORPHINE SULFATE 2 MG/ML CPJ (NOT FOR IM USE) IV PRN ×2 (09:32→16:12)
[2021-07-05] MEDS: ONDANSETRON HCL 4MG/2ML INJ IV PRN ×2 (09:33→16:11)
[2021-07-05 11:59] VITALS: BP 107/65
[2021-07-05 15:50] VITALS: BP 133/51
[2021-07-05 20:00] VITALS: BP 120/60
[2021-07-05] MEDS: METOPROLOL TARTRATE 25MG TABLET PO SCH (21:02)
[2021-07-05] MEDS: VANCOMYCIN 1 G PREMIX 200 ML IV SCH (21:06)
[2021-07-05] MEDS: ACETAMINOPHEN 325MG TABLET PO PRN (23:11)
[2021-07-06] VITALS (7 sets, daily range): BP systolic 104–112; BP diastolic 53–63
[2021-07-06] MEDS: ACETAMINOPHEN 325MG TABLET PO PRN (04:20)
[2021-07-06] MEDS: PIPERACILLIN/TAZOBACTAM 3.375 G in DEXTROSE 5% WATER 50 ML IV SCH ×3 (05:26→21:35)
[2021-07-06 08:12] LABS: BASOPHILS % 0.8 % (0.0-2.0); EOSINOPHILS % 4.9 % (0.0-5.0); LYMPHOCYTES % 21.9 % (20.0-50.0); MEAN CORPUSCULAR HEMOGLOBIN 27.6 pg (28.0-32.0); MEAN CORPUSCULAR VOLUME 82.8 fL (81.0-99.0); MONOCYTES % 12.4 % (2.0-8.0); PLATELET 273 x1000/uL (130-400); RED BLOOD CELL COUNT 3.26 mill/uL (4.2-5.4); RED CELL DISTRIBUTION WIDTH 14.9 % (11.6-14.6)
[2021-07-06 08:20] LABS: CHLORIDE 105 mEq/L (98-107)
[2021-07-06] MEDS: METOPROLOL TARTRATE 25MG TABLET PO SCH ×2 (08:43→20:53)
[2021-07-06] MEDS: MAGNESIUM OXIDE 400MG TABLET PO SCH (14:57)
[2021-07-06] MEDS: VANCOMYCIN 1 G PREMIX 200 ML IV SCH (18:31)
[2021-07-07] VITALS: BP 113/60
[2021-07-07 04:00] VITALS: BP 119/58
[2021-07-07] MEDS: MORPHINE SULFATE 2 MG/ML CPJ (NOT FOR IM USE) IV PRN (04:36)
[2021-07-07] MEDS: PIPERACILLIN/TAZOBACTAM 3.375 G in DEXTROSE 5% WATER 50 ML IV SCH ×3 (06:04→21:42)
[2021-07-07 07:57] LABS: BASOPHILS % 0.6 % (0.0-2.0); EOSINOPHILS % 2.2 % (0.0-5.0); HEMOGLOBIN. 9.2 g/dL (12.0-16.0); MEAN CORPUSCULAR VOLUME 81.9 fL (81.0-99.0); MEAN PLATELET VOLUME 7.6 fl (7.4-10.4); MONOCYTES % 10.3 % (2.0-8.0); NEUTROPHILS % 69.9 % (40.0-76.0); PLATELET 282 x1000/uL (130-400); RED BLOOD CELL COUNT 3.41 mill/uL (4.2-5.4); RED CELL DISTRIBUTION WIDTH 14.8 % (11.6-14.6)
[2021-07-07 07:59] LABS: CHLORIDE 105 mEq/L (98-107)
[2021-07-07 08:05] VITALS: BP 120/51
[2021-07-07] MEDS: MAGNESIUM OXIDE 400MG TABLET PO SCH (08:44)
[2021-07-07] MEDS: METOPROLOL TARTRATE 25MG TABLET PO SCH ×2 (08:44→21:44)
[2021-07-07 12:00] VITALS: BP 118/72
[2021-07-07 16:00] VITALS: BP 138/81
[2021-07-07] MEDS: VANCOMYCIN 1 G PREMIX 200 ML IV SCH (19:40)
[2021-07-07 20:00] VITALS: BP 127/64
[2021-07-07] MEDS: ONDANSETRON HCL 4MG/2ML INJ IV PRN (21:42)
[2021-07-08] VITALS: BP 105/50
[2021-07-08 04:00] VITALS: BP 104/53
[2021-07-08] MEDS: PIPERACILLIN/TAZOBACTAM 3.375 G in DEXTROSE 5% WATER 50 ML IV SCH ×2 (05:17→14:23)
[2021-07-08] MEDS: ACETAMINOPHEN 325MG TABLET PO PRN (05:17)
[2021-07-08 06:37] LABS: BASOPHILS % 0.8 % (0.0-2.0); EOSINOPHILS % 2.7 % (0.0-5.0); HEMATOCRIT. 29.3 % (36.0-48.0); HEMOGLOBIN. 9.8 g/dL (12.0-16.0); LYMPHOCYTES % 22.2 % (20.0-50.0); MEAN CORPUSCULAR HEMOGLOBIN 27.4 pg (28.0-32.0); MEAN CORPUSCULAR VOLUME 81.9 fL (81.0-99.0); MEAN PLATELET VOLUME 8.1 fl (7.4-10.4); MONOCYTES % 11.2 % (2.0-8.0); NEUTROPHILS % 63.1 % (40.0-76.0); PLATELET 319 x1000/uL (130-400); RED BLOOD CELL COUNT 3.58 mill/uL (4.2-5.4); RED CELL DISTRIBUTION WIDTH 14.9 % (11.6-14.6)
[2021-07-08 06:54] LABS: CHLORIDE 102 mEq/L (98-107)
[2021-07-08 07:53] VITALS: BP 106/48
[2021-07-08] MEDS: METOPROLOL TARTRATE 25MG TABLET PO SCH (08:44)
[2021-07-08] MEDS: MAGNESIUM OXIDE 400MG TABLET PO SCH (08:48)
[2021-07-08 12:16] VITALS: BP 106/58
[2021-07-08 16:19] VITALS: BP 121/43
[2021-07-08 17:08] VITALS: BP 121/43
[2021-07-08] MEDS ORDERED: METOPROLOL TARTRATE 25MG TABLET PO SCH (21:00)
== END 2021-07-08 18:56 | DRG 872 ==
LOC: ER 17:45 → 6WST 07-03 00:59 → ENRESERV 07-03 02:44 → 6WST 07-08 19:15 → 4WST 07-08 19:15
PROVIDERS: ADMIT Internal Medicine; ATTEND Internal Medicine
DX: A41.9 Sepsis, unspecified organism (principal); L03.116 Cellulitis of left lower limb; C56.9 Malignant neoplasm of unspecified ovary; Z68.41 Body mass index [BMI] 40.0-44.9, adult; L03.115 Cellulitis of right lower limb; G82.20 Paraplegia, unspecified; L97.929 Non-pressure chronic ulcer of unspecified part of left lower leg with unspecified severity; E46 Unspecified protein-calorie malnutrition; C78.6 Secondary malignant neoplasm of retroperitoneum and peritoneum; N13.30 Unspecified hydronephrosis; R18.8 Other ascites; I10 Essential (primary) hypertension; E11.42 Type 2 diabetes mellitus with diabetic polyneuropathy; I89.0 Lymphedema, not elsewhere classified; E66.01 Morbid (severe) obesity due to excess calories; G47.33 Obstructive sleep apnea (adult) (pediatric); G89.29 Other chronic pain; R26.9 Unspecified abnormalities of gait and mobility; I25.10 Atherosclerotic heart disease of native coronary artery without angina pectoris; D64.9 Anemia, unspecified; E61.1 Iron deficiency; I87.8 Other specified disorders of veins; I87.2 Venous insufficiency (chronic) (peripheral); R53.81 Other malaise; C55 Malignant neoplasm of uterus, part unspecified; Z79.899 Other long term (current) drug therapy; Z82.49 Family history of ischemic heart disease and other diseases of the circulatory system; Z90.710 Acquired absence of both cervix and uterus; Z85.42 Personal history of malignant neoplasm of other parts of uterus
CPT/HCPCS: 36415; 71045; 74176; 80048; 80053; 80061; 80202; 83605; 83735; 84443; 84484; 85025; 86304; 93005; 93306; 93970; 97116; 97162; 99285; J2270; J2405; J2543; J3370; J7060

== ENCOUNTER 2021-07-08 19:00 | Inpatient (IN) | payer MEDICARE, MEDICAID ==
[~2021-07-08] VITALS: Ht 157.5 cm; Wt 99.8 kg
[~2021-07-08 19:00] MED LIST changes: +ARTHRITIS PAIN; +BUME0.5T5 PO; +DOCU-150 MT; +FEROSUL; +GABA-529 MT; +IMIQ1CRE TP; +LOSA1TAB34 MT; +METO-396 MT; +MULT-13 MT; +NAPR-681 MT; +OMEP20CA14 PO; +PAIN RELIEF PO; +TRAM50TA3 MT
[2021-07-08 20:00] VITALS: BP 106/65
[2021-07-08] MEDS: ACETAMINOPHEN 325MG TABLET PO PRN (23:01)
[2021-07-08] MEDS: AMOXICILLIN/POTASSIUM CLAVULANATE 875/125MG TAB PO SCH (23:22)
[2021-07-08] MEDS: DOXYCYCLINE HYCLATE 100MG CAPSULE PO SCH (23:22)
[2021-07-09] MEDS ORDERED: VANCOMYCIN 1 G PREMIX 200 ML IV SCH (02:00)
[2021-07-09] MEDS ORDERED: ONDANSETRON HCL 4MG TABLET PO PRN (02:15)
[2021-07-09] MEDS ORDERED: NALOXONE HCL 0.4 MG/ML 1ML VIAL IV ONE (02:15)
[2021-07-09] MEDS ORDERED: DIPHENHYDRAMINE 50MG/ML VIAL IV PRN (02:15)
[2021-07-09] MEDS ORDERED: IPRATROPIUM/ALBUTEROL 0.5-3(2.5)MG/3ML NEB HHN PRN (02:15)
[2021-07-09] MEDS: ACETAMINOPHEN 325MG TABLET PO PRN (04:55)
[2021-07-09] MEDS ORDERED: PIPERACILLIN/TAZOBACTAM 3.375 G in DEXTROSE 5% WATER 50 ML IV SCH (06:00)
[2021-07-09 06:36] LABS: BASOPHILS % 0.9 % (0.0-2.0); EOSINOPHILS % 1.7 % (0.0-5.0); HEMATOCRIT. 27.9 % (36.0-48.0); HEMOGLOBIN. 9.3 g/dL (12.0-16.0); LYMPHOCYTES % 15.9 % (20.0-50.0); MEAN CORPUSCULAR HEMOGLOBIN 27.5 pg (28.0-32.0); MEAN CORPUSCULAR VOLUME 82.5 fL (81.0-99.0); MEAN PLATELET VOLUME 7.6 fl (7.4-10.4); MONOCYTES % 11.3 % (2.0-8.0); NEUTROPHILS % 70.2 % (40.0-76.0); PLATELET 294 x1000/uL (130-400); RED BLOOD CELL COUNT 3.38 mill/uL (4.2-5.4)
[2021-07-09 06:38] LABS: CHLORIDE 104 mEq/L (98-107)
[2021-07-09 08:21] VITALS: BP 118/70
[2021-07-09] MEDS: CALCIUM CARBONATE 500MG TABLET CHEW PO PRN (08:53)
[2021-07-09] MEDS: MAGNESIUM OXIDE 400MG TABLET PO SCH (08:53)
[2021-07-09] MEDS: AMOXICILLIN/POTASSIUM CLAVULANATE 875/125MG TAB PO SCH ×2 (08:53→22:05)
[2021-07-09] MEDS: DOXYCYCLINE HYCLATE 100MG CAPSULE PO SCH ×2 (08:54→22:05)
[2021-07-09] MEDS: METOPROLOL TARTRATE 25MG TABLET PO SCH ×2 (08:54→22:07)
[2021-07-09 20:00] VITALS: BP 132/75
[2021-07-09 23:00] VITALS: BP 130/70
[2021-07-10 06:48] LABS: BASOPHILS % 0.5 % (0.0-2.0); EOSINOPHILS % 1.4 % (0.0-5.0); HEMATOCRIT. 26.6 % (36.0-48.0); HEMOGLOBIN. 8.9 g/dL (12.0-16.0); LYMPHOCYTES % 19.2 % (20.0-50.0); MEAN CORPUSCULAR HEMOGLOBIN 27.7 pg (28.0-32.0); MEAN CORPUSCULAR VOLUME 82.4 fL (81.0-99.0); MEAN PLATELET VOLUME 7.6 fl (7.4-10.4); MONOCYTES % 12.6 % (2.0-8.0); NEUTROPHILS % 66.3 % (40.0-76.0); PLATELET 294 x1000/uL (130-400); RED BLOOD CELL COUNT 3.23 mill/uL (4.2-5.4); RED CELL DISTRIBUTION WIDTH 15.3 % (11.6-14.6)
[2021-07-10 07:02] LABS: CHLORIDE 104 mEq/L (98-107)
[2021-07-10 07:13] LABS: TOTAL IRON BINDING CAPACITY 163 ug/dL (250-450)
[2021-07-10 07:32] LABS: FOLIC ACID (FOLATE) SERUM >20 ng/mL ng/mL (>5.38)
[2021-07-10 07:43] LABS: VITAMIN B12 SERUM 565 pg/mL (211-911)
[2021-07-10 08:29] VITALS: BP 103/68
[2021-07-10] MEDS: METOPROLOL TARTRATE 25MG TABLET PO SCH ×2 (09:00→21:43)
[2021-07-10] MEDS: AMOXICILLIN/POTASSIUM CLAVULANATE 875/125MG TAB PO SCH ×2 (09:17→21:43)
[2021-07-10] MEDS: DOXYCYCLINE HYCLATE 100MG CAPSULE PO SCH ×2 (09:18→21:43)
[2021-07-10] MEDS: MAGNESIUM OXIDE 400MG TABLET PO SCH (09:18)
[2021-07-10] MEDS: CALCIUM CARBONATE 500MG TABLET CHEW PO PRN (10:58)
[2021-07-10 14:21] LABS: FERRITIN 254 ng/mL (10-291)
[2021-07-10] MEDS: FERROUS SULFATE 325MG TABLET PO SCH ×2 (17:00→21:46)
[2021-07-10 20:00] VITALS: BP 103/20
[2021-07-10] MEDS: CYANOCOBALAMIN 1000MCG/ML VIAL IM SCH (21:45)
[2021-07-10] MEDS: ASCORBIC ACID 500 MG TABLET PO SCH (21:46)
[2021-07-10] MEDS: ACETAMINOPHEN 325MG TABLET PO PRN (21:49)
[2021-07-11 08:30] VITALS: BP 117/68
[2021-07-11] MEDS: FERROUS SULFATE 325MG TABLET PO SCH ×3 (09:00→17:00)
[2021-07-11] MEDS: ASCORBIC ACID 500 MG TABLET PO SCH ×2 (09:00→14:27)
[2021-07-11] MEDS: CYANOCOBALAMIN 1000MCG/ML VIAL IM SCH ×2 (14:26→15:00)
[2021-07-11] MEDS: ACETAMINOPHEN 325MG TABLET PO PRN (14:27)
[2021-07-11] MEDS: CALCIUM CARBONATE 500MG TABLET CHEW PO PRN (14:35)
[2021-07-11] MEDS: AMOXICILLIN/POTASSIUM CLAVULANATE 875/125MG TAB PO SCH ×3 (18:46→20:51)
[2021-07-11] MEDS: MAGNESIUM OXIDE 400MG TABLET PO SCH (18:48)
[2021-07-11] MEDS: METOPROLOL TARTRATE 25MG TABLET PO SCH ×2 (18:48→20:50)
[2021-07-11] MEDS: DOXYCYCLINE HYCLATE 100MG CAPSULE PO SCH ×3 (18:49→20:51)
[2021-07-11 20:00] VITALS: BP 114/63
[2021-07-12] MEDS: ACETAMINOPHEN 325MG TABLET PO PRN ×2 (00:17→06:27)
[2021-07-12 08:00] VITALS: BP 123/60
[2021-07-12 08:34] LABS: EOSINOPHILS % 1.8 % (0.0-5.0); HEMATOCRIT. 31.4 % (36.0-48.0); HEMOGLOBIN. 10.4 g/dL (12.0-16.0); LYMPHOCYTES % 23.9 % (20.0-50.0); MEAN PLATELET VOLUME 8.2 fl (7.4-10.4); MONOCYTES % 9.3 % (2.0-8.0); PLATELET 394 x1000/uL (130-400); RED BLOOD CELL COUNT 3.83 mill/uL (4.2-5.4); RED CELL DISTRIBUTION WIDTH 14.9 % (11.6-14.6)
[2021-07-12] MEDS: AMOXICILLIN/POTASSIUM CLAVULANATE 875/125MG TAB PO SCH ×2 (08:46→20:32)
[2021-07-12] MEDS: MAGNESIUM OXIDE 400MG TABLET PO SCH (08:46)
[2021-07-12] MEDS: ASCORBIC ACID 500 MG TABLET PO SCH (08:46)
[2021-07-12] MEDS: DOXYCYCLINE HYCLATE 100MG CAPSULE PO SCH ×2 (08:47→21:00)
[2021-07-12] MEDS: METOPROLOL TARTRATE 25MG TABLET PO SCH ×2 (08:47→20:33)
[2021-07-12] MEDS: FERROUS SULFATE 325MG TABLET PO SCH ×3 (08:47→16:56)
[2021-07-12] MEDS: CALCIUM CARBONATE 500MG TABLET CHEW PO PRN (08:48)
[2021-07-12 08:57] LABS: CHLORIDE 101 mEq/L (98-107)
[2021-07-12] MEDS ORDERED: SENNOSIDES/DOCUSATE SOD 8.6/50MG TABLET PO PRN (10:30)
[2021-07-12] MEDS: CYANOCOBALAMIN 1000MCG/ML VIAL IM SCH (15:18)
[2021-07-12 20:00] VITALS: BP 126/64
[2021-07-13] MEDS: ACETAMINOPHEN 325MG TABLET PO PRN (05:09)
[2021-07-13 08:00] VITALS: BP 114/61
[2021-07-13] MEDS: FERROUS SULFATE 325MG TABLET PO SCH ×3 (09:09→17:36)
[2021-07-13] MEDS: DOXYCYCLINE HYCLATE 100MG CAPSULE PO SCH ×2 (09:09→21:15)
[2021-07-13] MEDS: MAGNESIUM OXIDE 400MG TABLET PO SCH (09:09)
[2021-07-13] MEDS: METOPROLOL TARTRATE 25MG TABLET PO SCH ×2 (09:11→21:15)
[2021-07-13] MEDS: AMOXICILLIN/POTASSIUM CLAVULANATE 875/125MG TAB PO SCH ×2 (09:49→21:15)
[2021-07-13] MEDS: ASCORBIC ACID 500 MG TABLET PO SCH (09:49)
[2021-07-13 13:00] LABS: BASOPHILS % 0.7 % (0.0-2.0); EOSINOPHILS % 1.3 % (0.0-5.0); HEMATOCRIT. 26.9 % (36.0-48.0); HEMOGLOBIN. 8.9 g/dL (12.0-16.0); LYMPHOCYTES % 19.4 % (20.0-50.0); MEAN CORPUSCULAR HEMOGLOBIN 27.3 pg (28.0-32.0); MEAN CORPUSCULAR VOLUME 82.5 fL (81.0-99.0); MONOCYTES % 10.8 % (2.0-8.0); NEUTROPHILS % 67.8 % (40.0-76.0); PLATELET 337 x1000/uL (130-400); RED BLOOD CELL COUNT 3.27 mill/uL (4.2-5.4); RED CELL DISTRIBUTION WIDTH 14.9 % (11.6-14.6)
[2021-07-13] MEDS: CYANOCOBALAMIN 1000MCG/ML VIAL IM SCH (15:10)
[2021-07-13 19:00] LABS: HEMATOCRIT 27.8 % (36.0-48.0); HEMOGLOBIN 9.1 g/dL (12.0-16.0)
[2021-07-13 20:00] VITALS: BP 120/64
[2021-07-14 00:57] LABS: HEMATOCRIT 27.5 % (36.0-48.0); HEMOGLOBIN 9.2 g/dL (12.0-16.0)
[2021-07-14] MEDS: ACETAMINOPHEN 325MG TABLET PO PRN ×2 (01:40→18:13)
[2021-07-14 07:30] LABS: HEMATOCRIT 25.1 % (36.0-48.0); HEMOGLOBIN 8.6 g/dL (12.0-16.0)
[2021-07-14 08:00] VITALS: BP 114/67
[2021-07-14] MEDS: PANTOPRAZOLE SODIUM 40 MG/VIAL IV SCH (09:18)
[2021-07-14] MEDS: FERROUS SULFATE 325MG TABLET PO SCH ×3 (09:18→17:49)
[2021-07-14] MEDS: ASCORBIC ACID 500 MG TABLET PO SCH (09:19)
[2021-07-14] MEDS: MAGNESIUM OXIDE 400MG TABLET PO SCH (09:19)
[2021-07-14] MEDS: METOPROLOL TARTRATE 25MG TABLET PO SCH ×2 (09:19→20:52)
[2021-07-14 12:56] LABS: HEMATOCRIT 26.3 % (36.0-48.0); HEMOGLOBIN 8.8 g/dL (12.0-16.0)
[2021-07-14] MEDS: CYANOCOBALAMIN 1000MCG/ML VIAL IM SCH (14:28)
[2021-07-14] MEDS: CALCIUM CARBONATE 500MG TABLET CHEW PO PRN (17:50)
[2021-07-14 20:00] VITALS: BP 108/55
[2021-07-14 20:14] LABS: HEMATOCRIT 28.5 % (36.0-48.0); HEMOGLOBIN 9.4 g/dL (12.0-16.0)
[2021-07-15 00:39] LABS: HEMATOCRIT 25.3 % (36.0-48.0); HEMOGLOBIN 8.6 g/dL (12.0-16.0)
[2021-07-15 08:00] VITALS: BP 109/69
[2021-07-15] MEDS: ASCORBIC ACID 500 MG TABLET PO SCH (08:14)
[2021-07-15] MEDS: FERROUS SULFATE 325MG TABLET PO SCH ×3 (08:14→17:03)
[2021-07-15] MEDS: PANTOPRAZOLE SODIUM 40 MG/VIAL IV SCH (08:14)
[2021-07-15] MEDS: MAGNESIUM OXIDE 400MG TABLET PO SCH (08:14)
[2021-07-15] MEDS: METOPROLOL TARTRATE 25MG TABLET PO SCH ×2 (08:23→21:00)
[2021-07-15] MEDS: CALCIUM CARBONATE 500MG TABLET CHEW PO PRN (12:12)
[2021-07-15] MEDS: ACETAMINOPHEN 325MG TABLET PO PRN ×2 (12:12→21:04)
[2021-07-15 19:08] LABS: 25-HYDROXY VITAMIN D3 32 ng/mL (.)
[2021-07-15 20:00] VITALS: BP 109/63
[2021-07-16] MEDS: ACETAMINOPHEN 325MG TABLET PO PRN ×3 (05:25→21:09)
[2021-07-16] MEDS: CALCIUM CARBONATE 500MG TABLET CHEW PO PRN ×2 (05:35→12:03)
[2021-07-16 08:00] VITALS: BP 103/56
[2021-07-16 08:05] LABS: BASOPHILS % 0.7 % (0.0-2.0); EOSINOPHILS % 1.4 % (0.0-5.0); HEMATOCRIT. 24.4 % (36.0-48.0); HEMOGLOBIN. 8.2 g/dL (12.0-16.0); LYMPHOCYTES % 16.9 % (20.0-50.0); MEAN CORPUSCULAR HEMOGLOBIN 27.4 pg (28.0-32.0); MEAN CORPUSCULAR VOLUME 81.5 fL (81.0-99.0); MEAN PLATELET VOLUME 7.8 fl (7.4-10.4); MONOCYTES % 8.8 % (2.0-8.0); NEUTROPHILS % 72.2 % (40.0-76.0); PLATELET 336 x1000/uL (130-400); RED CELL DISTRIBUTION WIDTH 15.2 % (11.6-14.6)
[2021-07-16] MEDS: PANTOPRAZOLE SODIUM 40 MG/VIAL IV SCH (08:22)
[2021-07-16] MEDS: FERROUS SULFATE 325MG TABLET PO SCH ×3 (08:22→16:49)
[2021-07-16] MEDS: ASCORBIC ACID 500 MG TABLET PO SCH (08:22)
[2021-07-16] MEDS: MAGNESIUM OXIDE 400MG TABLET PO SCH (08:22)
[2021-07-16] MEDS: METOPROLOL TARTRATE 25MG TABLET PO SCH ×2 (08:23→21:00)
[2021-07-16] MEDS: ONDANSETRON HCL 4MG TABLET PO PRN (16:49)
[2021-07-16 20:00] VITALS: BP 103/53
[2021-07-17] MEDS: ACETAMINOPHEN 325MG TABLET PO PRN (05:53)
[2021-07-17 07:52] VITALS: BP 110/53
[2021-07-17] MEDS: ASCORBIC ACID 500 MG TABLET PO SCH (08:24)
[2021-07-17] MEDS: METOPROLOL TARTRATE 25MG TABLET PO SCH (08:25)
[2021-07-17] MEDS: FERROUS SULFATE 325MG TABLET PO SCH ×3 (08:25→16:20)
[2021-07-17] MEDS: PANTOPRAZOLE SODIUM 40 MG/VIAL IV SCH (08:25)
[2021-07-17] MEDS: ONDANSETRON HCL 4MG TABLET PO PRN (08:25)
[2021-07-17] MEDS: MAGNESIUM OXIDE 400MG TABLET PO SCH (08:25)
[2021-07-17] MEDS ORDERED: HYDROCODONE/ACETAMINOPHEN 5/325MG TABLET PO PRN (09:15)
[2021-07-17] MEDS ORDERED: NALOXONE HCL 0.4MG/ML VIAL IV PRN (09:30)
[2021-07-17] MEDS: ONDANSETRON HCL 4MG/2ML INJ IV PRN ×2 (12:56→16:20)
[2021-07-17] MEDS ORDERED: ONDA4TAB11 PO (13:59)
[2021-07-17 15:45] VITALS: BP 126/74
[2021-07-17] MEDS ORDERED: *PATIENT'S OWN MEDICATION STORAGE XX SCH (15:45)
[2021-07-17 17:30] VITALS: BP 126/74
== END 2021-07-17 18:55 | disposition short-term general hospital (02) | DRG 74 ==
LOC: UNDODISIN 07-17 18:55
PROVIDERS: ADMIT Physical Medicine & Rehabilitation Spinal Cord Injury Medicine; ATTEND Internal Medicine
DX: G62.9 Polyneuropathy, unspecified (principal); L03.115 Cellulitis of right lower limb; L03.116 Cellulitis of left lower limb; G82.20 Paraplegia, unspecified; K92.1 Melena; R18.8 Other ascites; N13.30 Unspecified hydronephrosis; E46 Unspecified protein-calorie malnutrition; Z68.41 Body mass index [BMI] 40.0-44.9, adult; I87.8 Other specified disorders of veins; I89.0 Lymphedema, not elsewhere classified; E66.01 Morbid (severe) obesity due to excess calories; R26.9 Unspecified abnormalities of gait and mobility; R53.81 Other malaise; I10 Essential (primary) hypertension; K74.60 Unspecified cirrhosis of liver; F06.34 Mood disorder due to known physiological condition with mixed features; N83.9 Noninflammatory disorder of ovary, fallopian tube and broad ligament, unspecified; D50.9 Iron deficiency anemia, unspecified; G47.33 Obstructive sleep apnea (adult) (pediatric); E83.42 Hypomagnesemia; G89.29 Other chronic pain; I87.2 Venous insufficiency (chronic) (peripheral); R00.0 Tachycardia, unspecified; N93.9 Abnormal uterine and vaginal bleeding, unspecified; Z90.710 Acquired absence of both cervix and uterus; Z85.42 Personal history of malignant neoplasm of other parts of uterus; Z90.722 Acquired absence of ovaries, bilateral; Z90.79 Acquired absence of other genital organ(s); Z82.49 Family history of ischemic heart disease and other diseases of the circulatory system; Z79.899 Other long term (current) drug therapy; E53.8 Deficiency of other specified B group vitamins; R97.1 Elevated cancer antigen 125 [CA 125]
CPT/HCPCS: 36415; 80048; 80053; 82306; 82607; 82728; 82746; 83540; 83550; 84134; 84443; 85014; 85018; 85025; 93005; 93970; 97110; 97112; 97116; 97162; 97166; 97530; 97535; C9113; J2405; J3420; Q0162

== ENCOUNTER 2021-07-17 19:05 | Inpatient (IN) | payer MEDICARE, MEDICAID ==
[~2021-07-17] VITALS: Ht 157.5 cm; Wt 98.4 kg
[~2021-07-17 19:05] MED LIST changes: +ONDA4TAB11 PO
[2021-07-17 20:00] VITALS: BP 127/74
[2021-07-17 23:13] VITALS: BP 127/74
[2021-07-18] VITALS (10 sets, daily range): BP systolic 98–123; BP diastolic 55–66
[2021-07-18] MEDS ORDERED: DILTIAZEM HCL 30MG TABLET PO PRN (00:15)
[2021-07-18] MEDS ORDERED: ONDANSETRON HCL 4MG/2ML INJ IV PRN (00:15)
[2021-07-18] MEDS ORDERED: ACETAMINOPHEN 325MG TABLET PO PRN (00:15)
[2021-07-18] MEDS ORDERED: IPRATROPIUM/ALBUTEROL 0.5-3(2.5)MG/3ML NEB HHN PRN (00:15)
[2021-07-18] MEDS ORDERED: HYDROCODONE/ACETAMINOPHEN 5/325MG TABLET PO PRN (00:30)
[2021-07-18] MEDS ORDERED: NALOXONE HCL 0.4MG/ML VIAL IV PRN (00:45)
[2021-07-18] MEDS: MAGNESIUM OXIDE 400MG TABLET PO SCH (08:28)
[2021-07-18] MEDS: ASCORBIC ACID 500 MG TABLET PO SCH (08:28)
[2021-07-18] MEDS: PANTOPRAZOLE 40MG DR TABLET PO SCH (08:28)
[2021-07-18] MEDS: FERROUS SULFATE 325MG TABLET PO SCH ×3 (08:28→18:21)
[2021-07-18 09:47] LABS: BASOPHILS % 1.2 % (0.0-2.0); EOSINOPHILS % 1.1 % (0.0-5.0); HEMOGLOBIN. 7.8 g/dL (12.0-16.0); LYMPHOCYTES % 17.6 % (20.0-50.0); MEAN CORPUSCULAR HEMOGLOBIN 27.7 pg (28.0-32.0); MEAN CORPUSCULAR VOLUME 81.2 fL (81.0-99.0); MEAN PLATELET VOLUME 7.2 fl (7.4-10.4); MONOCYTES % 10.7 % (2.0-8.0); NEUTROPHILS % 69.4 % (40.0-76.0); PLATELET 344 x1000/uL (130-400); RED BLOOD CELL COUNT 2.84 mill/uL (4.2-5.4); RED CELL DISTRIBUTION WIDTH 15.2 % (11.6-14.6)
[2021-07-18] MEDS: METOPROLOL TARTRATE 25MG TABLET PO SCH ×2 (11:34→21:00)
[2021-07-18] MEDS ORDERED: IOHEXOL-350 100 ML BOTTLE ONE (14:10)
[2021-07-18] MEDS ORDERED: *PATIENT'S OWN MEDICATION STORAGE XX SCH (23:00)
[2021-07-18 23:43] LABS: HEMOGLOBIN 8.9 g/dL (12.0-16.0)
[2021-07-19] VITALS: BP 114/62
[2021-07-19 04:00] VITALS: BP 135/65
[2021-07-19] MEDS: PANTOPRAZOLE 40MG DR TABLET PO SCH (06:07)
[2021-07-19 07:32] LABS: CHLORIDE 102 mEq/L (98-107)
[2021-07-19 08:00] VITALS: BP 104/58
[2021-07-19 08:02] LABS: BASOPHILS % 0.9 % (0.0-2.0); EOSINOPHILS % 1.7 % (0.0-5.0); HEMATOCRIT. 25.2 % (36.0-48.0); HEMOGLOBIN. 8.6 g/dL (12.0-16.0); LYMPHOCYTES % 15.5 % (20.0-50.0); MEAN CORPUSCULAR HEMOGLOBIN 27.9 pg (28.0-32.0); MEAN CORPUSCULAR VOLUME 81.6 fL (81.0-99.0); MEAN PLATELET VOLUME 7.9 fl (7.4-10.4); MONOCYTES % 9.6 % (2.0-8.0); NEUTROPHILS % 72.3 % (40.0-76.0); PLATELET 337 x1000/uL (130-400); RED BLOOD CELL COUNT 3.08 mill/uL (4.2-5.4); RED CELL DISTRIBUTION WIDTH 15.2 % (11.6-14.6)
[2021-07-19] MEDS: METOPROLOL TARTRATE 25MG TABLET PO SCH (08:21)
[2021-07-19] MEDS: MAGNESIUM OXIDE 400MG TABLET PO SCH (08:21)
[2021-07-19] MEDS: FERROUS SULFATE 325MG TABLET PO SCH ×2 (08:21→11:29)
[2021-07-19] MEDS: ASCORBIC ACID 500 MG TABLET PO SCH (08:21)
[2021-07-19 12:00] VITALS: BP 125/60
[2021-07-19] MEDS ORDERED: METO25TA6 PO (13:21)
[2021-07-19] MEDS ORDERED: MAGN400T29 MT (13:21)
[2021-07-19 14:55] VITALS: BP 118/55
[2021-07-19] MEDS ORDERED: METOPROLOL TARTRATE 25MG TABLET PO SCH (21:00)
== END 2021-07-19 16:33 | disposition home or self-care (01) | DRG 602 ==
LOC: 7EST 19:05
PROVIDERS: ADMIT Internal Medicine; ATTEND Internal Medicine
PROC: 30233N1 Transfusion of Nonautologous Red Blood Cells into Peripheral Vein, Percutaneous Approach (ICD-10-PCS; principal; 2021-07-18)
DX: L03.116 Cellulitis of left lower limb (principal); I26.99 Other pulmonary embolism without acute cor pulmonale; R18.8 Other ascites; C56.9 Malignant neoplasm of unspecified ovary; E46 Unspecified protein-calorie malnutrition; G82.20 Paraplegia, unspecified; I47.1 Supraventricular tachycardia; N13.30 Unspecified hydronephrosis; Z68.42 Body mass index [BMI] 45.0-49.9, adult; J98.11 Atelectasis; D68.9 Coagulation defect, unspecified; L97.929 Non-pressure chronic ulcer of unspecified part of left lower leg with unspecified severity; L97.919 Non-pressure chronic ulcer of unspecified part of right lower leg with unspecified severity; C78.6 Secondary malignant neoplasm of retroperitoneum and peritoneum; L03.115 Cellulitis of right lower limb; D64.9 Anemia, unspecified; E61.1 Iron deficiency; E66.01 Morbid (severe) obesity due to excess calories; G47.33 Obstructive sleep apnea (adult) (pediatric); I10 Essential (primary) hypertension; I87.8 Other specified disorders of veins; G62.9 Polyneuropathy, unspecified; R59.0 Localized enlarged lymph nodes; M19.90 Unspecified osteoarthritis, unspecified site; K74.60 Unspecified cirrhosis of liver; Z79.899 Other long term (current) drug therapy; Z85.42 Personal history of malignant neoplasm of other parts of uterus; Z90.710 Acquired absence of both cervix and uterus; Z68.39 Body mass index [BMI] 39.0-39.9, adult
CPT/HCPCS: 36415; 71275; 80048; 84484; 85014; 85018; 85025; 86850; 86900; 86920; 93005; 93970; J7040; P9016; Q9967